=== PATIENT | female | born 1960 | race Asian ===

== ENCOUNTER 2019-08-21 21:11 | Inpatient (IN) | payer OTHER ==
[~2019-08-21] VITALS: Ht 149.9 cm; Wt 57.0 kg
[2019-08-21] MEDS ORDERED: SODIUM CHLORIDE FLUSH 10ML SYR IVF ONE (21:30)
[2019-08-21] MEDS ORDERED: HALOPERIDOL 5 MG/ML ONE (21:38)
[2019-08-21] MEDS ORDERED: ONDANSETRON 2MG/ML, 2ML ONE (21:39)
--- NOTE | 2019-08-21 21:40 | NUR ---
PATIENT STATED THAT SHE HAD TO PEE, STRIAGHT CATH PERFORMED. PATIENT TOLERATED POORLY. PATIENT CHANGED INTO HOSPITAL GOWN. PLACED ON SUPERVISOR CAR AND YARD. EKG PERFORMED. PATIENT TOLERATED ALL INTERVENTIONS POORLY.
[2019-08-21 21:50] LABS: INTERNATIONAL NORMALIZED RATIO 1.01 (0.93-1.1); PROTHROMBIN TIME 10.7 Seconds (9.6-11.5)
[2019-08-21 21:51] LABS: ALBUMIN 2.8 g/dL (3.4-5.0); ANION GAP 11 mmol/L (5-15); CALCIUM 8.3 mg/dL (8.5-10.1); CHLORIDE 108 mmol/L (98-107)
[2019-08-21 21:53] LABS: ALANINE AMINOTRANSFERASE 37 U/L (12-78); ALKALINE PHOSPHATASE 89 U/L (45-117); BILIRUBIN,TOTAL 1.2 mg/dL (0.2-1.0); CREATININE 2.07 mg/dL (0.55-1.02); TOTAL PROTEIN 5.6 g/dL (6.4-8.2)
[2019-08-21] MEDS ORDERED: HALOPERIDOL 5 MG/ML IV ONE ×2 (22:00)
[2019-08-21] MEDS ORDERED: LACTULOSE 3.3 GM/5 ML ORAL.SOL RC ONE (22:00)
[2019-08-21] MEDS ORDERED: SODIUM CHLORIDE 0.9%, 500ML IVBOLUS ONE (22:00)
[2019-08-21 22:05] LABS: BASOPHILS # (AUTO) 0.01 x10^3/uL (0-0.1); BASOPHILS % (AUTO) 0 % (0-1); EOSINOPHILS % (AUTO) 0 % (1-7); LYMPHOCYTES % (AUTO) 9 % (22-44); MD SCAN; MEAN CORPUSCULAR HEMOGLOBIN 33.7 pg (27.0-34.8); MEAN CORPUSCULAR HGB CONC 33.6 g/dL (32.4-35.8); MEAN CORPUSCULAR VOLUME 100.5 fL (80-100); MEAN PLATELET VOLUME 9.2 fL (7.4-10.4); MONOCYTES # (AUTO) 0.38 x10^3/uL (0.2-0.8); MONOCYTES % (AUTO) 9 % (2-9); NEUTROPHILS % (AUTO) 81 % (42-75); PLATELET COUNT 95 x10^3/uL (130-400); RED BLOOD COUNT 2.79 x10^6/uL (3.82-5.3); RED CELL DISTRIBUTION WIDTH 16.2 % (9.6-15.2)
--- NOTE | 2019-08-21 22:05 | NUR ---
PATIENT IS DISORIENTED, COMPATIVE, AND CONFUSED. PATIENT WILL NOT FOLLOW COMMANDS OF STAFF OR . PATIENT IS REMOVING MONITORS, AND ATTEMPTING TO REMOVE IV. PATIENT GIVEN 1MG HALDOL IVP, AND REPEATED DOSAGE AFTER 10 MINS AND NO IMPROVEMENT. PATIENT HAS TAKEN OFF HOSPITAL GOWN, IS STANDING IN THE BED SCREAMING. IT IS UNSAFE FOR THE PATIENT TO CONTINUE BEHAVIOR. REQUESTED THAT PATIENT BE RESTRAINED, WILL ATTEMPT TO PREVENT PHYSICAL RESTRAINT. PATIENT WILL NOT RESPOND WELL TO BEING PHYSICALLY RESTRAINED. PLAN OF CARE DISCUSSED WITH , NO FURTHER NEEDS AT THIS TIME. PATIENT IS WITHIN VIEW OF THE NURSES STATION. BED IN LOWEST LOCKED POSITION, CALL LIGHT NOT IN BED FOR PATIENT SAFETY. SEIZURE PADS PLACED ON BED TO PREVENT PATIENT FROM HITTING HEAD DURING SPORATIC COMBATIVE MOVEMENT.
--- NOTE | 2019-08-21 22:12 | NUR ---
PATIENT IS NOW RESTING IN BED, COMFORTABLY. PATIENT HAS BECOME MORE CALM AFTER SECOND DOSAGE OF HALDOL. VITAL SIGNS STABLE. WILL CONTINUE TO MONTIOR. AT BEDSIDE WITH PATIENT.
[2019-08-21 22:21] LABS: MICROSCOPIC AUTO
--- NOTE | 2019-08-21 22:41 | NUR ---
ADMITTING PHSYICIAN AT BEDSIDE WITH FAMILY DISCUSSING PLAN OF CARE.
[2019-08-21] MEDS ORDERED: ONDANSETRON 2MG/ML, 2ML IVPush PRN (23:00)
[2019-08-21] MEDS ORDERED: PROMETHAZINE 25 MG/ML, 1ML IM PRN (23:00)
[2019-08-21] MEDS ORDERED: D5%-0.45% NACL 1,000 ML IV SCH (23:00)
[2019-08-21] MEDS ORDERED: ONDANSETRON ODT 4 MG PO PRN (23:00)
[2019-08-21 23:26] LABS: FREE T4 (FREE THYROXINE) 1.03 ng/dL (0.76-1.46)
--- NOTE | 2019-08-21 23:34 | NUR ---
PATIENT RESTING IN BED, NO NOTED NEEDS. PATIENT'S UPDATED ON PLAN OF CARE. IV MAINTENCE FLUIDS ADMINISTERED, AWAITING FOR LACTULOSE FROM [facility]. VITAL SIGNS STABLE. WILL CONTINUE TO MONITOR.
[2019-08-22] VITALS (8 sets, daily range): BP systolic 138–197; BP diastolic 61–78
[2019-08-22] MEDS ORDERED: LACTULOSE 3.3 GM/5 ML ORAL.SOL RC ONE (00:30)
--- NOTE | 2019-08-22 00:53 | NUR ---
CALLED [facility] FOR UPDATE OF CARE. PATIENT'S ENEMA COMPLETED, PATIENT TOLERATED WELL. PATIENT PLACED ON MULTIPLE PADS, AND BRIEF TO IMPROVE PATIENT OUTCOME WITH ENEMA. NO NOTED ACUTE DISTRESS. VITAL SIGNS STABLE. PATIENT WILL BE TRANSPORTED VIA GURNEY TO FLOOR WITH TECH.
[2019-08-22] MEDS ORDERED: RIFA550T4 PO (02:50)
[2019-08-22] MEDS ORDERED: PRED20TA PO (02:52)
[2019-08-22] MEDS ORDERED: OMEP40CA42 PO (02:54)
[2019-08-22] MEDS ORDERED: MYCO500T3 PO (02:55)
[2019-08-22] MEDS ORDERED: LACT20SO13 PO (02:56)
[2019-08-22] MEDS ORDERED: clotrimazole (03:00)
[2019-08-22] MEDS ORDERED: CARV3.1212 PO (03:00)
[2019-08-22] MEDS ORDERED: ASPI-430 PO (03:00)
[2019-08-22] MEDS ORDERED: SPIR25TA5 PO (03:00)
[2019-08-22] MEDS ORDERED: DAPS100T PO (03:00)
[2019-08-22] MEDS ORDERED: FURO80TA3 PO (03:00)
[2019-08-22] MEDS: CARVEDILOL 3.125 MG TABLET PO SCH ×2 (06:30→18:38)
[2019-08-22] MEDS: ASPIRIN 81 MG TABLET EC PO SCH (06:30)
[2019-08-22] MEDS: OMEPRAZOLE 20 MG CAPSULE.DR PO SCH (06:30)
[2019-08-22 06:34] LABS: MEAN CORPUSCULAR HEMOGLOBIN 33.8 pg (27.0-34.8); MEAN CORPUSCULAR VOLUME 102.5 fL (80-100); RED BLOOD COUNT 2.88 x10^6/uL (3.82-5.3); RED CELL DISTRIBUTION WIDTH 16.3 % (9.6-15.2)
[2019-08-22 06:38] LABS: ALANINE AMINOTRANSFERASE 33 U/L (12-78); ALBUMIN 2.6 g/dL (3.4-5.0); ANION GAP 10 mmol/L (5-15); CALCIUM 8.6 mg/dL (8.5-10.1); CHLORIDE 115 mmol/L (98-107); CHOLESTEROL, TOTAL 277 mg/dL (140-239); CREATININE 1.79 mg/dL (0.55-1.02)
[2019-08-22 06:40] LABS: ALKALINE PHOSPHATASE 86 U/L (45-117); BILIRUBIN,TOTAL 1.1 mg/dL (0.2-1.0); CHOL/HDL RATIO 10.7; HDL CHOL % 9 % (28-40); HDL CHOLESTEROL (DIRECT) 26 mg/dL (40-60); LDL CHOLESTEROL,CALCULATED 172 mg/dL (54-169); LDL/HDL RATIO 6.6 (0.5-3.0); TOTAL PROTEIN 5.2 g/dL (6.4-8.2); TRIGLYCERIDES 394 mg/dL (50-200); VLDL CHOLESTEROL 79 mg/dL (0-25)
[2019-08-22 07:07] LABS: MEAN PLATELET VOLUME 9.2 fL (7.4-10.4); PLATELET COUNT 89 x10^3/uL (130-400)
[2019-08-22 07:12] LABS: MD YES
[2019-08-22 07:15] LABS: BAND#(MANUAL) 0.29 x10^3/uL; BANDS%(MANUAL) 6 % (0-7); BASOS#(MANUAL) 0.05 x10^3/uL (0-0.1); BASOS% (MANUAL) 1 % (0-1); LYMPH#(MANUAL) 0.24 x10^3/uL (1-3.4); LYMPHS% (MANUAL) 5 % (22-44); MONOS#(MANUAL) 0.19 x10^3/uL (0.3-2.7); MONOS% (MANUAL) 4 % (2-9); REACTIVE LYMPHS # (MANUAL) 0.05 x10^3/uL (0-0); REACTIVE LYMPHS % (MANUAL) 1 % (0-0); SEG#(MANUAL) 3.98 x10^3/uL (1.8-6.8); SEGS% (MANUAL) 83 % (42-75)
[2019-08-22 07:16] LABS: <PLATELET ESTIMATE> DECREASED; <PLT MORPHOLOGY> NORMAL PLT MORPH; ANISOCYTOSIS 1+
[2019-08-22] MEDS ORDERED: prednisOLONE 15 MG/5 ML ORAL SOLN PO SCH (08:00)
[2019-08-22] MEDS: LACTULOSE 20 GM/30 ML UDC PO SCH ×3 (08:07→20:15)
[2019-08-22] MEDS: SPIRONOLACTONE 25 MG TABLET PO SCH ×2 (08:08→20:15)
[2019-08-22] MEDS: RIFAXIMIN 550 MG TABLET PO SCH ×2 (08:08→20:15)
[2019-08-22] MEDS: CALCIUM CARBONATE 500 MG TABLET PO SCH ×2 (08:08→20:15)
[2019-08-22] MEDS: DAPSONE 100 MG TABLET PO SCH (08:08)
[2019-08-22] MEDS: ARIPIPRAZOLE 2 MG TABLET PO SCH (09:44)
[2019-08-22] MEDS: prednisOLONE 15 MG/5 ML ORAL SOLN PO SCH (09:45)
[2019-08-22] MEDS: hydrALAzine 20 MG/ML, 1ML IVPush PRN (19:28)
[2019-08-23] VITALS (7 sets, daily range): BP systolic 129–193; BP diastolic 64–72
[2019-08-23] MEDS ORDERED: MELATONIN 5 MG TABLET PO SCH (00:30)
[2019-08-23] MEDS: ASPIRIN 81 MG TABLET EC PO SCH (06:00)
[2019-08-23] MEDS: OMEPRAZOLE 20 MG CAPSULE.DR PO SCH (06:09)
[2019-08-23] MEDS: CARVEDILOL 3.125 MG TABLET PO SCH ×2 (06:09→18:35)
[2019-08-23 06:19] LABS: BASOPHILS % (AUTO) 0 % (0-1); EOSINOPHILS % (AUTO) 0 % (1-7); LYMPHOCYTES # (AUTO) 0.48 x10^3/uL (1-3.4); LYMPHOCYTES % (AUTO) 10 % (22-44); MD NO; MEAN CORPUSCULAR HEMOGLOBIN 32.5 pg (27.0-34.8); MEAN CORPUSCULAR HGB CONC 31.6 g/dL (32.4-35.8); MEAN CORPUSCULAR VOLUME 102.6 fL (80-100); MONOCYTES # (AUTO) 0.44 x10^3/uL (0.2-0.8); MONOCYTES % (AUTO) 9 % (2-9); NEUTROPHILS # (AUTO) 3.87 x10^3/uL (1.8-6.8); NEUTROPHILS % (AUTO) 81 % (42-75); PLATELET COUNT 100 x10^3/uL (130-400); RED BLOOD COUNT 2.93 x10^6/uL (3.82-5.3); RED CELL DISTRIBUTION WIDTH 16.9 % (9.6-15.2)
[2019-08-23 06:32] LABS: CHLORIDE 109 mmol/L (98-107)
[2019-08-23 06:50] LABS: ALANINE AMINOTRANSFERASE 32 U/L (12-78); ALBUMIN 2.6 g/dL (3.4-5.0); ALKALINE PHOSPHATASE 89 U/L (45-117); ANION GAP 11 mmol/L (5-15); BILIRUBIN,TOTAL 1.5 mg/dL (0.2-1.0); CALCIUM 8.2 mg/dL (8.5-10.1); CREATININE 1.66 mg/dL (0.55-1.02); TOTAL PROTEIN 5.4 g/dL (6.4-8.2)
[2019-08-23] MEDS: LACTULOSE 20 GM/30 ML UDC PO SCH ×3 (08:41→20:09)
[2019-08-23] MEDS: prednisOLONE 15 MG/5 ML ORAL SOLN PO SCH (08:41)
[2019-08-23] MEDS: RIFAXIMIN 550 MG TABLET PO SCH ×2 (08:41→20:09)
[2019-08-23] MEDS: CALCIUM CARBONATE 500 MG TABLET PO SCH ×2 (08:42→20:09)
[2019-08-23] MEDS: ARIPIPRAZOLE 2 MG TABLET PO SCH (08:42)
[2019-08-23] MEDS: DAPSONE 100 MG TABLET PO SCH (08:42)
[2019-08-23] MEDS: SPIRONOLACTONE 25 MG TABLET PO SCH ×2 (08:42→20:09)
[2019-08-23] MEDS: FUROSEMIDE 20 MG TABLET PO SCH (09:51)
[2019-08-23] MEDS: hydrALAzine 20 MG/ML, 1ML IVPush PRN (20:49)
[2019-08-24 01:06] VITALS: BP 150/69
[2019-08-24 05:36] VITALS: BP 155/65
[2019-08-24] MEDS: OMEPRAZOLE 20 MG CAPSULE.DR PO SCH (05:37)
[2019-08-24] MEDS: CARVEDILOL 3.125 MG TABLET PO SCH (05:37)
[2019-08-24] MEDS: ASPIRIN 81 MG TABLET EC PO SCH (05:38)
[2019-08-24 07:10] VITALS: BP 145/83
[2019-08-24] MEDS: prednisOLONE 15 MG/5 ML ORAL SOLN PO SCH (08:20)
[2019-08-24] MEDS: ARIPIPRAZOLE 2 MG TABLET PO SCH (08:21)
[2019-08-24] MEDS: LACTULOSE 20 GM/30 ML UDC PO SCH (08:21)
[2019-08-24] MEDS: FUROSEMIDE 20 MG TABLET PO SCH (08:22)
[2019-08-24] MEDS: CALCIUM CARBONATE 500 MG TABLET PO SCH (08:22)
[2019-08-24] MEDS: DAPSONE 100 MG TABLET PO SCH (08:23)
[2019-08-24] MEDS: SPIRONOLACTONE 25 MG TABLET PO SCH (08:23)
[2019-08-24] MEDS: RIFAXIMIN 550 MG TABLET PO SCH (08:23)
[2019-08-24] MEDS ORDERED: RIFA550T4 PO (08:54)
[2019-08-24] MEDS ORDERED: FURO20TA3 PO (08:54)
[2019-08-24] MEDS ORDERED: LACT20SO13 PO (08:54)
[2019-08-24] MEDS ORDERED: PRED15SO3 PO (08:54)
== END 2019-08-24 11:52 | disposition home health service (06) | DRG 441 ==
LOC: ED 21:39 → EDIP 22:23 → 4WST 08-22 01:08 → DCLOUNGE 08-24 11:27
PROVIDERS: ADMIT Internal Medicine; ATTEND Internal Medicine
DX: K72.90 Hepatic failure, unspecified without coma (principal); G93.41 Metabolic encephalopathy; N18.4 Chronic kidney disease, stage 4 (severe); E87.2 Acidosis; N17.9 Acute kidney failure, unspecified; I10 Essential (primary) hypertension; D69.6 Thrombocytopenia, unspecified; D63.1 Anemia in chronic kidney disease; D89.9 Disorder involving the immune mechanism, unspecified; I12.9 Hypertensive chronic kidney disease with stage 1 through stage 4 chronic kidney disease, or unspecified chronic kidney disease; K74.60 Unspecified cirrhosis of liver; Z86.73 Personal history of transient ischemic attack (TIA), and cerebral infarction without residual deficits; Z79.899 Other long term (current) drug therapy
CPT/HCPCS: 36415; 70551; 80053; 80061; 81001; 82140; 83036; 83690; 83735; 84439; 84443; 85025; 85610; 85730; 93005; G0378; J2405; J0360; J1630; J7040; J7510; J7517